=== PATIENT | male | born 1960 | race Caucasian/White ===

== ENCOUNTER 2020-08-12 10:18 | Emergency (ER) | payer BC, OTHER ==
[2020-08-12] MEDS ORDERED: Metoclopramide 10 MG/2 ML SDV IVPUSH ONE (10:36)
[2020-08-12] MEDS ORDERED: HYDROmorphone 1 MG/ML Syringe IVPUSH ONE ×2 (10:36→11:39)
--- NOTE | 2020-08-12 10:41 | EDM.PDOC ---
ED HPI GENERAL MEDICAL PROBLEM - General Chief Complaint: Trauma Stated Complaint: RIB PAIN Time Seen by Provider: 08/12/20 10:28 Source of Information: Reports: Patient History Limitations: Reports: No Limitations - History of Present Illness INITIAL COMMENTS - FREE TEXT/NARRATIVE: -year-old male presents to the ED with a work-related injury. Patient states a heavy piece of pipe which he estimates weighs 1500 pounds struck him in the back of his head and then rolled down his neck mid back and lower back over top of another piece of pipe. It crushed him essentially with his ribs up against the other piece of pipe. States it took about 5 minutes before he can get his breath. Still having significant pain right lateral ribs particularly 6-12 on the right side. He states he has no pain in his lower extremities and can still walk. Injury occurred within 1/2-hour coming to the ED. He was placed in a cervical collar by triage nurse. He does have some diffuse cervical spinous process tenderness. He never lost consciousness. Onset: Today, Sudden Onset Date: 08/12/20 Onset Time: 10:10 Duration: Minutes:, Constant, Getting Worse Location: Reports: Neck (Diffuse cervical neck pain placed in a cervical collar. No extremity pain.), Chest ( cervical thoracic and lumbar spine. Pain throughout chest wall particularly right lateral ribs), Back (Pain throughout) Quality: Reports: Ache, Sharp, Stabbing, Other (Take a full deep breath to the sharp stabbing pain from rib injuries right lateral chest primarily) Severity: Severe Improves with: Reports: Rest (Shallow breathing) Worsens with: Reports: Movement Context: Reports: Trauma (Trauma where a large heavy 1500 pound pipe came down across his occipital scalp and then rolled down his entire back and neck squishing him up against a another large pipe in the workplace this morning.). Denies: Activity, Exercise, Lifting, Sick Contact Associated Symptoms: Reports: Chest Pain, Loss of Appetite, Shortness of Breath. Denies: Confusion, Cough, cough w sputum (Chest pain from multiple rib injuries particular in the right side.), Fever/Chills, Headaches, Malaise, Nausea/Vomiting, Rash, Seizure, Syncope, Weakness Treatments [employer]: Reports: Other (see below) (Dyspneic due to taking a full breath making the pain worse. None.) Right Middle Flank Pain Score (Numeric/FACES): 10 - Related Data Allergies Allergy/AdvReac Type Severity Reaction Status Date / Time No Known Allergies Allergy Verified 08/12/20 11:02 Home Meds: Home Meds Levothyroxine 200 mcg PO ACBREAKFAST 08/12/20 [History] Levothyroxine [Synthroid] 50 mcg PO ACBREAKFAST 08/12/20 [History] oxyCODONE HCl/Acetaminophen [Percocet 5-325 mg Tablet] 1 - 2 each PO Q4H PRN #40 tablet 08/12/20 [Rx] polyethylene glycoL 3350 [Miralax] 17 gm PO DAILY #1 canister 08/12/20 [Rx] Social & Family History - Living Situation & Occupation Living situation: Reports: Single (Self-employed) Occupation: Employed Review of Systems - Review of Systems Review Of Systems: See Below Constitutional: Reports: No Symptoms Eyes: Reports: No Symptoms Ears: Reports: No Symptoms Nose: Reports: No Symptoms Mouth/Throat: Reports: No Symptoms Respiratory: Reports: Shortness of Breath. Denies: Cough, Sputum (Due to injuries to his ribs today. Not short of breath on a normal basis.) Cardiovascular: Reports: Other. Denies: Chest Pain, Edema GI/Abdominal: Reports: No Symptoms (Denies blood pressure issues) Genitourinary: Reports: Other (Frequency nocturia x2) Musculoskeletal: Reports: Neck Pain, Shoulder Pain, Back Pain Skin: Reports: No Symptoms Neurological: Reports: No Symptoms Psychiatric: Reports: No Symptoms ED EXAM, GENERAL - Physical Exam Exam: See Below Exam Limited By: No Limitations General Appearance: Alert, WD/WN, Moderate Distress, Other (Obvious pain and discomfort. Cannot take a full deep breath. Cannot stand fully erect. C- collar was placed by triage nurse in the ED due to his reported cervical neck pain.) Eye Exam: Bilateral Eye: Normal Inspection, PERRL Ears: Normal External Exam, Normal TMs Throat/Mouth: Normal Inspection, Normal Lips, Normal Oropharynx Head: Atraumatic, Normocephalic Neck: Normal Inspection, Supple, Non-Tender, Full Range of Motion. No: Lymphadenopathy (L), Lymphadenopathy (R) Respiratory/Chest: Normal Breath Sounds, No Accessory Muscle Use, Respiratory Distress (Difficulty taking a deep breath i.e. splinting respirations particularly on the right side. Air entry is equal to both lung saleh however.) Cardiovascular: Normal Peripheral Pulses, Regular Rate, Rhythm, No Edema, No Gallop, No Murmur, No Rub Peripheral Pulses: 2+: Carotid (L), Carotid (R), Posterior Tibial (L), Posterior Tibial (R), Dorsalis Pedis (L), Dorsalis Pedis (R) GI/Abdominal: Normal Bowel Sounds, Soft, No Organomegaly, No Abnormal Bruit, No Mass, Pelvis Stable, Tender. No: Guarding (Tenderness to deep palpation right upper quadrant of the abdomen without guarding), Rigid Back Exam: Other (Min[place] of his back reveals tenderness to palpation of numerous spinous processes in the midline of the cervical spine and all of the thoracic spine lumbar spine appeared to be for the most part intact. There is no bruises. He has some redness and erythema over the superior half of his left upper back without any abrasions or lacerations deep contusions.) Extremities: Normal Inspection, Normal Range of Motion, Non-Tender, No Pedal Edema Neurological: Alert, Oriented, CN II-XII Intact, Normal Cognition Psychiatric: Anxious, Other (And a good deal of pain.) Skin Exam: Warm, Dry, Intact, Normal Color, No Rash Course - Vital Signs Last Recorded V/S: Last Vital Signs Temp 36.8 C 08/12/20 11:05 Pulse 98 08/12/20 11:05 Resp 18 08/12/20 11:05 BP 137/80 08/12/20 11:05 Pulse Ox 99 08/12/20 11:05 - Orders/Labs/Meds Orders: Active Orders 24 hr Category Date Time Status PATIENT RETYPE [BBK] Routine Lab 08/12/20 11:45 Ordered Sodium Chloride 0.9% [Normal Saline] 1,000 ml Med 08/12/20 10:45 Active IV ASDIRECTED Sodium Chloride 0.9% [Saline Flush] Med 08/12/20 10:50 Active 10 ml FLUSH ONETIME PRN Medication Orders Sodium Chloride (Normal Saline) 1,000 mls @ 150 mls/hr IV ASDIRECTED KATHERINE Last Admin: 08/12/20 11:46 Dose: 150 mls/hr Documented by: KIMBERLY Sodium Chloride (Saline Flush) 10 ml FLUSH ONETIME PRN PRN Reason: IV FLUSH Last Admin: 08/12/20 11:05 Dose: 10 ml Documented by: Admin: 08/12/20 11:01 Dose: 10 ml Documented by: KIMBERLY Labs: Laboratory Tests 08/12/20 08/12/20 08/12/20 Range/Units 10:36 10:36 10:36 WBC 9.50 H (4.23-9.07) K/mm3 RBC 5.35 (4.63-6.08) M/mm3 Hgb 15.6 (13.7-17.5) gm/dl Hct 47.8 (40.1-51.0) % MCV 89.3 (79.0-92.2) fl MCH 29.2 (25.7-32.2) pg MCHC 32.6 (32.2-35.5) g/dl RDW Std Deviation 44.1 H (35.1-43.9) fL Plt Count 258 (163-337) K/mm3 MPV 10.0 (9.4-12.3) fl Neut % (Auto) 65.5 (34.0-67.9) % Lymph % (Auto) 21.2 L (21.8-53.1) % [place] % (Auto) 6.9 (5.3-12.2) % Eos % (Auto) 4.7 (0.8-7.0) Baso % (Auto) 1.1 (0.1-1.2) % Neut # (Auto) 6.22 H (1.78-5.38) K/mm3 Lymph # (Auto) 2.01 (1.32-3.57) K/mm3 [place] # (Auto) 0.66 (0.30-0.82) K/mm3 Eos # (Auto) 0.45 (0.04-0.54) K/mm3 Baso # (Auto) 0.10 H (0.01-0.08) K/mm3 Sodium 139 (136-145) mEq/L Potassium 4.1 (3.5-5.1) mEq/L Chloride 103 (98-107) mEq/L Carbon Dioxide 25 (21-32) mEq/L Anion Gap 15.1 H (5-15) BUN 16 (7-18) mg/dL Creatinine 1.3 (0.7-1.3) mg/dL Est Cr Clr Drug Dosing 64.36 mL/min Estimated GFR (MDRD) 56 (>60) mL/min BUN/Creatinine Ratio 12.3 L (14-18) Glucose 108 H (74-106) mg/dL Calcium 9.4 (8.5-10.1) mg/dL Total Bilirubin 0.3 (0.2-1.0) mg/dL AST 32 (15-37) U/L ALT 45 (16-63) U/L Alkaline Phosphatase 67 (46-116) U/L Creatine Kinase 250 (39-308) U/L Total Protein 7.4 (6.4-8.2) g/dl Albumin 4.1 (3.4-5.0) g/dl Globulin 3.3 gm/dL Albumin/Globulin Ratio 1.2 (1-2) Blood Type O POSITIVE Gel Antibody Screen Negative Meds: Medications Generic Name Dose Route Start Last Admin Trade Name Freq PRN Reason Stop Dose Admin Sodium Chloride 1,000 mls @ 150 mls/hr 08/12/20 10:45 08/12/20 11:46 Normal Saline IV 150 mls/hr ASDIRECTED KATHERINE Administration Sodium Chloride 10 ml 08/12/20 10:50 08/12/20 11:05 Saline Flush FLUSH 10 ml ONETIME PRN Administration IV FLUSH Discontinued Medications Generic Name Dose Route Start Last Admin Trade Name Freq PRN Reason Stop Dose Admin Hydromorphone HCl 1 mg 08/12/20 10:36 08/12/20 10:44 Dilaudid IVPUSH 08/12/20 10:37 1 mg ONETIME ONE Administration Hydromorphone HCl 1 mg 08/12/20 11:39 08/12/20 11:45 Dilaudid IVPUSH 08/12/20 11:40 1 mg ONETIME ONE Administration Iopamidol 150 ml 08/12/20 10:50 08/12/20 11:05 Isovue-300 (61%) IVPUSH 08/12/20 10:51 150 ml ONETIME ONE Administration Metoclopramide HCl 10 mg 08/12/20 10:36 08/12/20 10:43 Reglan IVPUSH 08/12/20 10:37 10 mg ONETIME ONE Administration - Radiology Interpretation Free Text/Narrative:: 59-year-old male presents to the ED after being injured in the workplace this morning. He reports a 1500 pound pipe came down on him and struck him in the back of the head and then rolled down his neck and thoracic spine and perhaps his lower back and then off of him. This past [place] squished him up against another large pipe injuring his chest wall particularly pain right lateral ribs. Having trouble getting a full deep breath. Plan IV normal saline 150 mils per hour. Routine labs to be performed including type and screen. He will have CT head neck thoracic and lumbar spine CT chest abdomen and pelvis with IV contrast. - Re-Assessments/Exams Free Text/Narrative Re-Assessment/Exam: 08/12/20 11:[address] of the brain reveals no skull fractures. Ventricles along with the basal cisterns and sulci over the convexities are within normal limits for the patient's age. No abnormal parenchymal densities are noted. No evidence of intracranial hemorrhage appreciated no midline shift or mass-effect noted. Minimal mucosal thickening within the ethmoid sinuses and frontal sinuses are noted. Mastoid sinuses showed nothing acute. CT cervical spine reveals vertebral body heights and disc spaces are fairly well-maintained. Mild anterior osteophytes are seen at C5-6 and C6-7 levels. No central canal stenosis or neuroforaminal stenosis is seen. No cervical spine fracture identified no no abnormal subluxation is seen. CT chest reveals the thoracic aorta shows no aneurysm. M ediastinum shows no adenopathy no pericardial thickening is appreciated. No axillary adenopathy noted. Subpleural blebs are seen within both upper lungs bone window settings were reviewed there is nondisplaced fracture is noted within the posterior lateral fifth rib on the right side additional nondisplaced fracture is noted within the posterior posterior lateral sixth rib on the right side mildly displaced fracture is noted within the posterior lateral right eighth rib and essentially nondisplaced fracture noted within the right ninth rib in the posterior lateral location. Deformity is seen within the left eighth rib and ninth ribs compatible with old healed fractures. Several anterior compression deformities are noted within the mid thoracic spine which show associated degenerative change which are most likely old in nature. Findings of pneumothorax or pulmonary contusion identified. CAT abdomen shows the liver to show no focal parenchymal abnormality seen appears to be within normal limits. Adrenal glands show no nodules pancreas is within normal limits gallbladder contains no calcified gallstones. Kidneys show symmetric contrast enhancement and appear otherwise unremarkable. Aorta shows mild atherosclerotic change without evidence of aneurysm. Atherosclerotic calcification continues into both iliac vessels. No retroperitoneal adenopathy or mesenteric abnormalities are noted. No pelvic mass or adenopathy noted. Numerous diverticuli are seen within the sigmoid colon without evidence of inflammatory change. Diverticuli continue into the descending colon. Bone window settings were reviewed which shows no definite acute abnormality. 08/12/20 11:51 CT of the lumbar spine reveals mild scattered endplate osteophytes. Mild disc space narrowing is noted at the L1-2 level. Severe disc space narrowing with acute phenomenon noted at L5-S1 level. Mild disc space narrowing at L3-4 level as well. Mild diffuse circumferential disc bulges are seen. Disc bulge at L3-4 is most prominent which causes mild central canal stenosis. Small disc herniation at L4-5 to the right of midline indents the thecal sac causing mild central canal stenosis as well. Neuroforamina shows no gross narrowing. Mild degenerative changes noted within the SI joints bilaterally. No fractures or subluxations are identified. CT of the thoracic spine show scattered disc space narrowing throughout. Mild scattered endplate osteophytes are noted. Mild anterior wedging is noted within T6, T7, T8 and T9 vertebra this appears to be chronic. There are no acute fracture line seen to suggest acute fractures. This suggest these findings are old. 08/12/20 12:11 be discharged to home with a incentive spirometer to be used ideally 3-4 times per hour while awake. He will have Ang wrap supplied to his chest wall since the rib fractures are minimally displaced and are high I ribs [id number] and 9. He will be off work likely for a minimum of 6 weeks. He will be followed by Dr. Krueger in the clinic I would suggest follow-up in the next 7 to 10 days for initial visit and he will decide when the patient is able to return to the workplace in full capacity. He may be able to do alternative light duties in the shop or office starting at 3 to 4 weeks depending on how well he feels. Patient advised he will have to be sleeping sitting up in an easy chair for a minimum of 3 weeks. He is to return to care if he develops any fever chills or productive cough. Will be discharged home on MiraLAX powder 17 g once daily to prevent constipation while on narcotic pain medication. Percocet tabs 5/325 mg strength 1-2 every 4-6 hours as needed for pain relief 40 tablets provided Departure - Departure Time of Disposition: 12:13 Disposition: Home, Self-Care 01 Condition: Fair Clinical Impression: Encounter for assessment of work-related causation of injury Fracture five ribs-closed Qualifiers: Encounter type: initial encounter Laterality: right Qualified Code(s): S22.41XA - Multiple fractures of ribs, right side, initial encounter for closed fracture Chest wall contusion Qualifiers: Encounter type: initial encounter Laterality: right Qualified Code(s): S20.211A - Contusion of right front wall of thorax, initial encounter - Discharge Information *PRESCRIPTION DRUG MONITORING PROGRAM REVIEWED*: Not Applicable *COPY OF PRESCRIPTION DRUG MONITORING REPORT IN PATIENT CHAS: Not Applicable Prescriptions: polyethylene glycoL 3350 [Miralax] 17 gm PO DAILY #1 canister oxyCODONE HCl/Acetaminophen [Percocet 5-325 mg Tablet] 1 - 2 each PO Q4H PRN #40 tablet PRN Reason: multiple broken ribs Instructions: How to Use Cold Therapy, [id number], Contusion, [id number], Rib Fracture, [id number] Referrals: Alberto Mcknight MD [Primary Care Provider] - Forms: ED Department Discharge Additional Instructions: Evaluation in the emergency room today in regards to injuries that occurred in the workplace this morning when a very heavy pipe came down along your upper back and neck and likely glanced off the back of your head and then rolled down your entire spine and off of you. This crushed you against another large pipe injuring your right ribs. CT of the brain and head revealed no abnormalities. CT cervical spine or neck revealed age-appropriate degenerative changes with no broken bones. Similarly CT scan of the lumbar and thoracic spine were carried out and did not reveal any fractures. There are some degenerative changes with old compression fractures in the mid thoracic spine from previous injuries. CT of the chest reveals old healed fractures of 2 ribs on the left side. They reveal new fractures on the right side and ribs #5 and 6 that are undisplaced. No fracture identified within ribs 7 although there likely is a hidden fracture in this rib. There are fractures of ribs #8 and [address] There is no injury to the underlying lung such as a pneumothorax or air leak into the lung and no bruised lung at this time. Also no injuries were identified to the liver or kidney in the upper right back and no injuries to any of the intra-abdominal organs or pelvic organs identified. There is degenerative arthritic changes in the lumbar spine with some disc protrusions. Treatment is time off of work. Time for ribs to heal is on average 6 to 8 weeks. You will not be able to lay down flat for period of at least 3 weeks and will be sleeping in the easy chair. Suggest Ang wrap around your ribs for support for the next 10 to 14 days. Uses incentive spirometer 3-4 times per hour while awake to prevent wadding up of the lower lung and pneumonia. Pain medicine Percocet 5/325 mg strength 1 or 2 every 4-6 hours as needed for pain relief. Once pain is settled down over the next 10 days try and switch over to Motrin for pain relief. Suggest MiraLAX powder 17 g or 1 scoop daily to prevent constipation while on strong narcotic pain medication. Suggest making a follow-up appointment to see Dr. Krueger in 7 to 10 days time for initial evaluation of work-related injury and then he will follow you along and indicate when you are able to return to work perhaps even on a part-time basis before return to full duties. Sepsis Event Note (ED) - Focused Exam Vital Signs: Vital Signs Temp Pulse Resp BP Pulse Ox 08/12/20 11:05 36.8 C 98 18 137/80 99 08/12/20 10:46 36.8 C 98 18 137/80 99 - My Orders Last 24 Hours: My Active Orders 08/12/20 10:45 Sodium Chloride 0.9% [Normal Saline] 1,000 ml IV ASDIRECTED 08/12/20 10:50 Sodium Chloride 0.9% [Saline Flush] 10 ml FLUSH ONETIME PRN 08/12/20 11:45 PATIENT RETYPE [BBK] Routine - Assessment/Plan Last 24 Hours: My Active Orders 08/12/20 10:45 Sodium Chloride 0.9% [Normal Saline] 1,000 ml IV ASDIRECTED 08/12/20 10:50 Sodium Chloride 0.9% [Saline Flush] 10 ml FLUSH ONETIME PRN 08/12/20 11:45 PATIENT RETYPE [BBK] Routine
[2020-08-12] MEDS ORDERED: Sodium Chloride 0.9% 1,000 ML IV SCH (10:45)
[2020-08-12] MEDS ORDERED: Iopamidol 612 MG/ML 50 ML SDV IVPUSH ONE (10:50)
[2020-08-12] MEDS ORDERED: Iopamidol 612 MG/ML 150 ML Bottle IVPUSH ONE (10:50)
[2020-08-12] MEDS: Sodium Chloride 0.9% 10 ML Syringe FLUSH PRN ×2 (11:01→11:05)
--- NOTE | 2020-08-12 11:28 | CT ---
Head CT Technique: Multiple axial sections through the brain were obtained. Intravenous contrast was not utilized. Reconstructed coronal and sagittal images were obtained. Comparison: No previous study is available. Findings: Ventricles along with basal cisterns and sulci over the convexities are within normal limits for the patient's age. No abnormal parenchymal densities are seen. No evidence of intracranial hemorrhage is seen. No midline shift or mass-effect is appreciated. Bone window settings were reviewed which show mild mucosal thickening within the left maxillary sinus. Minimal mucosal thickening within the ethmoid sinuses and right frontal sinus is noted. Mastoid sinuses show nothing acute. No acute calvarial abnormality is appreciated. Impression: 1. Mild chronic appearing paranasal sinus findings as noted above. 2. Nothing acute is otherwise seen on noncontrast head CT study. Diagnostic code #2
--- NOTE | 2020-08-12 11:31 | CT ---
CT cervical spine Technique: Multiple axial sections were obtained from above C1 inferiorly to the top of T2. Reconstructed coronal and sagittal images were obtained. Comparison: No prior cervical spine imaging is available. Findings: Vertebral body heights and disc spaces are fairly well maintained. Mild anterior osteophytes are seen at C5-6 and C6-7. No central canal stenosis or neural foraminal stenosis is seen. No cervical spine fracture is appreciated. No abnormal subluxation is seen. Impression: 1. Minimal degenerative change. 2. No acute fracture or abnormal subluxation is appreciated on CT study of the cervical spine. Diagnostic code #2
--- NOTE | 2020-08-12 11:40 | CT ---
CT chest Technique: Multiple axial sections were obtained from above the lung apices inferiorly through the lung bases. Intravenous contrast was utilized. Findings: Thoracic aorta shows no aneurysm. Mediastinum shows no adenopathy. No pericardial thickening is appreciated. No axillary adenopathy is appreciated. Subpleural air blebs are seen within the upper lungs. Bone window settings were reviewed. Nondisplaced fracture is noted within the posterolateral fifth rib on the right side. Additional nondisplaced fracture is noted within the posterolateral sixth rib on the right side. Mildly displaced fracture is noted within the posterolateral right eighth rib. Essentially nondisplaced fracture noted within the right ninth rib in the posterolateral location. Deformity is seen within the left eighth rib and ninth ribs compatible with old healed fractures. Several anterior compression deformities are noted within the mid thoracic spine which show associated degenerative change which are most likely old. Impression: 1. Multiple right-sided rib fractures which are acute. Two old appearing rib fractures on the left side. 2. Several anterior wedge deformities within the mid thoracic spine which are associated with degenerative change and are most likely old. 3. No other acute abnormality is appreciated on CT study of the chest. No findings of pneumothorax are seen at this time. Diagnostic code #3 CT abdomen and pelvis Technique: Multiple axial sections were obtained from above the dome of the diaphragm inferiorly through the pubic symphysis. Intravenous contrast was utilized. No oral contrast has been given. Reconstructed coronal and sagittal images were obtained. Findings: Liver shows no focal parenchymal abnormality. Spleen appears within normal limits. Adrenal glands show no nodules. Pancreas is within normal limits. Gallbladder contains no calcified gallstones. Kidneys show symmetric contrast enhancement and appear otherwise unremarkable. Aorta shows mild atherosclerotic change without evidence of aneurysm. Atherosclerotic calcification continues into both iliac vessels. No retroperitoneal adenopathy or mesenteric abnormalities are appreciated. No pelvic mass or adenopathy is noted. Numerous diverticuli are seen within the sigmoid colon without evidence of inflammatory change. Diverticuli continue into the descending colon. Bone window settings were reviewed which show no definite acute abnormality. Impression: 1. Findings as noted above within the abdomen and pelvis. 2. Nothing acute is appreciated. Diagnostic code #2
--- NOTE | 2020-08-12 11:41 | CT ---
CT lumbar spine Technique: Multiple axial sections were obtained through the lumbar spine. Reconstructed coronal and sagittal images were obtained. Comparison: None available Findings: Mild scattered endplate osteophytes are seen. Mild disc space narrowing is noted at L1-2. Severe disc space narrowing with vacuum disc phenomenon noted at L5-S1. Mild disc space narrowing at L3-4. Mild diffuse circumferential disc bulges are seen. Disc bulge at L3-4 is most prominent which causes mild central canal stenosis. Small disc herniation at L4-5 to the right of midline indents the thecal sac causing mild central canal stenosis. Neural foramina show no gross narrowing. Mild degenerative change is noted within the sacroiliac joints. No fracture or subluxation is appreciated. Impression: 1. Degenerative change as noted above. 2. Nothing acute is seen. Diagnostic code #3
--- NOTE | 2020-08-12 11:43 | CT ---
CT thoracic spine Technique: Multiple axial sections through the thoracic spine were obtained. Reconstructed coronal and sagittal images were obtained. Comparison: None available Findings: Scattered disc space narrowing is seen. Mild scattered endplate osteophytes are noted. Mild anterior wedging is noted within T6, T7, T8 and T9. There are no acute fracture lines seen within these areas. These findings are most likely old. No definite acute fracture or subluxation is appreciated. Impression: 1. Mild compression deformities most likely old. 2. Mild diffuse degenerative change. 3. No acute fracture or subluxation is appreciated. Diagnostic code #2
== END 2020-08-12 12:30 | disposition home or self-care (01) ==
LOC: JD.ED 10:18
DX: S22.41XA Multiple fractures of ribs, right side, initial encounter for closed fracture (principal); S20.211A Contusion of right front wall of thorax, initial encounter; W22.8XXA Striking against or struck by other objects, initial encounter
CPT/HCPCS: 36415; 70450; 71260; 72125; 72128; 72131; 74177; 80053; 82550; 85025; 86850; 86900; 86901; 96374; 96375; 96376; 99284; J1170; J2765; J7030; Q9967; 99285